=== PATIENT | female | born 1985 | race Two or more races ===

== ENCOUNTER 2020-11-12 09:03 | Outpatient (REF) | payer OTHER, SELFPAY ==
[2020-11-12 10:00] LABS: MANUAL DIFF FLAG NO
[2020-11-12 10:05] LABS: Basophils Percent Auto 0.6 % (0-2); Eosinophils Absolute Auto 0.1 X10*3/uL (0.0-0.4); Hematocrit 34.2 % (37-47); Imm Gran Abs Auto 0.02 X10*3/uL (0.00-0.03); Imm Gran Pct Auto 0.4 % (0.0-0.4); Lymphocytes Absolute Auto 1.9 X10*3/uL (1.2-4.9); Lymphocytes Percent Auto 39.1 % (20-40); Mean Corpuscular HGB Conc 32.2 g/dl (31.0-35.0); Mean Corpuscular Hemoglobin 29.4 pg (27.0-33.0); Mean Corpuscular Volume 91.4 fL (80-98); Mean Platelet Volume 10.7 fL (9.4-12.3); Monocytes Absolute Auto 0.5 X10*3/uL (0.1-1.2); Monocytes Percent Auto 9.6 % (2-11); Neutrophils Absolute Auto 2.4 X10*3/uL (2.0-8.3); Neutrophils Percent Auto 49.3 % (45-73); Platelet Count 242 X10*3/uL (160-400); Red Blood Count 3.74 X10*6/uL (4.20-5.50); Red Cell Distribution Width 14.2 % (11.0-16.0); White Blood Count 4.8 X10*3/uL (4.8-10.8)
[2020-11-12 10:34] LABS: Alanine Aminotransferase 42 U/L (0-31); Alkaline Phosphatase 90 U/L (39-117); Anion Gap 11 (12-20); Aspartate Amino Transferase 47 U/L (5-31); Bilirubin Total < 0.2 mg/dL (0.0-1.0); Blood Urea Nitrogen 6 mg/dL (9-16); Calcium 8.9 mg/dL (8.4-10.2); Carbon Dioxide 25 mmol/L (22-29); Chloride 108 mmol/L (96-108); Cholesterol 189 mg/dL; Estimated Glomerular Filt Rate > 60; Glucose Fasting 76 mg/dL (60-99); HDL Cholesterol 72 mg/dL; LDL Cholesterol Calculated 107 mg/dl; Potassium 4.5 mmol/L (3.3-5.1); Sodium 139 mmol/L (135-145); Triglycerides 50 mg/dL
[2020-11-13 11:46] LABS: CT PCR NOT DETECTED (Not Detect.); NG PCR NOT DETECTED (Not Detect.)
[2020-11-14 12:45] LABS: BV Int Neg Control Negative (Negative); BV Int Pos Control Positive (Positive)
[2020-11-16 11:27] LABS: TS Negative Control Passed; TS Panel A 3; TS Panel B 1; TS Positive Control Passed; TSpotTB Negative (SeeBelow)
[2020-11-17 17:22] LABS: HPV mRNA E6/E7 rflx Not Detected (Not Detected)
== END 2020-11-12 09:04 | disposition home or self-care (01) ==
LOC: HO.LAB 09:03
PROVIDERS: Advanced Practice Midwife; PCP Internal Medicine; Visit Provider Internal Medicine
DX: Z01.419 Encounter for gynecological examination (general) (routine) without abnormal findings (principal); N89.8 Other specified noninflammatory disorders of vagina; L72.0 Epidermal cyst; R00.2 Palpitations; E78.5 Hyperlipidemia, unspecified; D64.9 Anemia, unspecified; Z20.2 Contact with and (suspected) exposure to infections with a predominantly sexual mode of transmission; Z11.1 Encounter for screening for respiratory tuberculosis; Z79.899 Other long term (current) drug therapy
CPT/HCPCS: 36415; 80053; 80061; 84443; 85025; 86481; 87480; 87491; 87510; 87591; 87624; 87660; 88142; 99202

== ENCOUNTER 2020-12-03 07:46 | Outpatient (REF) | payer OTHER, SELFPAY ==
--- NOTE | 2020-12-03 07:41 | MHC.SHP ---
Pre-Procedural Eval Section A Date of Service: 12/03/20 The patient is an INPATIENT: No Changes since office visit: Yes Patient answered all questions; No Cold of Flu in the past 2 weeks, No New Medical Problems and No Changes in Medication The History & Physical has been completed within 30 days and I have reviewed it.: Yes Section B Chief Complaint: Epidermal inclusion cyst Allergies: Allergies Allergy/AdvReac Type Severity Reaction Status Date / Time sertraline [From Zoloft] Allergy Intermediate dizziness, Verified 11/12/20 14:28 palpitations Plan Diagnosis/Plan: Unchanged I have reviewed the history and physical and performed a pertinent physical examination on my patient. No changes have occurred unless specified.
[2020-12-03 07:56] VITALS: BMI 27.1
[2020-12-03 07:57] VITALS: BP 114/78; PULSE 83; RESP 16; TEMP 36.4; O2SAT 99
[2020-12-03 08:30] VITALS: BP 110/72; PULSE 72; RESP 16; O2SAT 100
--- NOTE | 2020-12-03 08:34 | W.PM.OPN ---
Operative Note Operative Note Date of Service: 12/03/20 Narrative: Preoperative diagnosis: epidermal inclusion cyst left posterior shoulder Postoperative diagnosis: same Procedure: excision of epidermal inclusion cyst left posterior shoulder Surgeon: Toby Limon MD Relocation Coordinator: no physician Anesthesia: local Indications for procedure: 35-year-old female with an enlarging cyst of the left posterior shoulder which is increasing in size and causing some discomfort Operative findings: 2.5 cm sebaceous cyst of the left posterior shoulder Specimen: epidermal inclusion cyst (sebaceous cyst ) Estimated blood loss: 2 mL Complications: none Procedure details: patient was brought to the minor surgery suite and placed in a prone position. The site of surgery was confirmed by the patient. Informed consent was confirmed. skin over the left posterior shoulder was prepped with Betadine and draped in a sterile fashion. An elliptical incision was then created with a 15 blade. This carried out through subcutaneous tissue and around the cyst wall. A 2.5 cm sebaceous cyst was encountered. This was excised completely and sent to pathology for further examination. After assuring adequate hemostasis the deep subcutaneous tissue was reapproximated using interrupted 3-0 Polysorb sutures. Dermis was reapproximated using interrupted 3-0 Polysorb sutures. Skin was then closed using interrupted 4-0 nylon sutures. Sterile dressings consisting of 2x2 gauze and Tegaderm were then applied. The patient tolerated the procedure well and was discharged to home in stable condition.
== END 2020-12-03 07:47 | disposition home or self-care (01) ==
LOC: HO.MS 07:46
PROVIDERS: PCP Internal Medicine; Visit Provider Surgery
PROC: (CPT 11403; principal; 2020-12-03 08:00)
DX: L72.0 Epidermal cyst (principal); F32.9 Major depressive disorder, single episode, unspecified; Z79.899 Other long term (current) drug therapy; Z88.8 Allergy status to other drugs, medicaments and biological substances
CPT/HCPCS: 11403; 12032; 88304

== ENCOUNTER → 2020-12-11 14:22 | Outpatient (BNVA) | payer OTHER, SELFPAY | PROVIDERS: PCP Internal Medicine; Referring Provider Internal Medicine; Visit Provider Surgery | DX: L72.0 Epidermal cyst (principal) | CPT/HCPCS: 99212 ==

== ENCOUNTER 2020-12-22 10:35 | Outpatient (REF) | payer OTHER, SELFPAY ==
--- NOTE | ~2020-12-22 | US_ITS ---
EXAMINATION: US COMPLETE ABDOMEN WITH LIVER ELASTOGRAPHY CLINICAL INFORMATION: Elevated liver enzymes COMPARISON: None. TECHNIQUE: Real-time imaging of the abdominal viscera. Noninvasive ultrasound liver fibrosis assessment is performed using Narcisa ElastPQ point quantification shear wave elastography (pSWE) with a C5-2 MHz transducer. Multiple elastography samples are obtained. FINDINGS: PANCREAS: Normal. ABDOMINAL AORTA: The proximal, middle, and distal aortic segments are normal in caliber. INFERIOR VENA CAVA: Visualized portions are normal. LIVER: Normal. The liver demonstrates normal size, contour and echogenicity. No focal lesion or intrahepatic biliary duct dilatation. The right lobe measures 15 cm in length. The left lobe measures 9.4 cm in length. Portal flow is normal/hepatopedal Shear wave liver elastography median stiffness is 1.4 m/s (reference: normal median stiffness is 1.3 m/s or less). IQR/median stiffness to assess sampling precision is 0.14 (reference: good quality data set is IQR/median stiffness of 0.15 or less). GALLBLADDER: Normal. The gallbladder is physiologically distended without evidence of stones, sludge, polyps, wall thickening or pericholecystic fluid. COMMON BILE DUCT: Normal in caliber measuring 0.3 cm in diameter. RIGHT KIDNEY: Normal. No hydronephrosis. No renal calculi or focal parenchymal lesions. The kidney measures 10.6 cm in maximum dimension. LEFT KIDNEY: Normal. No hydronephrosis. No renal calculi or focal parenchymal lesions. The kidney measures 10.3 cm in maximum dimension. SPLEEN: Normal. The spleen measures 9.2 cm in maximum dimension. FREE FLUID: None. US/US abdomen comp w elastography IMPRESSION: 1. Impression: Unremarkable exam. 2. Liver elastography: Adequate liver sampling. In the absence of other known clinical signs, rules out compensated advanced chronic liver disease. REFERENCE: Society of Radiologists in Ultrasound Liver Stiffness Thresholds (2020): LIVER STIFFNESS THRESHOLDS: *Liver Stiffness equal or less than 1.3 m/s: High probability of being normal. *Liver Stiffness less than 1.7 m/s: *Liver Stiffness 1.7-2.1 m/s: Suggestive of compensated advanced chronic liver disease but need further test for confirmation. *Liver Stiffness over 2.1 m/s: Rules in compensated advanced chronic liver disease. *Liver Stiffness over 2.4 m/s: Suggestive of clinically significant portal hypertension. QUALITY OF DATA SET: *IQR/Median value equal or less than 0.15 implies a quality data set. *IQR/Median value over 0.15 implies a poor quality data set. SIGNIFICANT CHANGE FROM PRIOR EXAM: Significant change if liver stiffness measurement is 10% or greater from prior exam. OTHER CONSIDERATIONS: The stage of liver fibrosis may be overestimated in the setting of acute hepatitis, liver inflammation, elevated liver function tests, hepatic vascular congestion, obstructive cholestasis, non-fasting state, and infiltrative diseases such as amyloidosis and lymphoma. In some patients with NAFLD, the liver stiffness thresholds for compensated advanced chronic liver disease may be lower. In causes other than viral hepatitis and NAFLD, liver stiffness thresholds are not well established.
== END 2020-12-22 10:36 | disposition home or self-care (01) ==
LOC: HO.US 10:35
PROVIDERS: Visit Provider Internal Medicine
DX: R74.01 Elevation of levels of liver transaminase levels (principal)
CPT/HCPCS: 76705; 76981

== ENCOUNTER → 2020-12-25 12:58 | Outpatient (REF) | payer OTHER, SELFPAY ==
--- NOTE | 2020-12-25 13:02 | ECG_ITS ---
Hook-up date: 2020-12-25 13:22:00 Duration: 47:59:00 Test Indications: palpitations Medications: 124353 QRS complexes 8 Ventricular ectopics which represent <1 % of total QRS comp. 1 Supraventricular ectopics which represent <1 % of total QRS comp. * Paced QRS complexs which represent % of total QRS comp. VENTRICULAR ECTOPY 8 Isolated 0 Bigeminal Cycles 0 Couplets 0 Runs 0 Beats in Runs * Beats LONGEST at * BPM at :: -- * Beats FASTEST at * BPM at :: -- SUPRAVENTRICULAR ECTOPY 1 Isolated 0 Couplets 0 Runs 0 Beats in Runs * Beats LONGEST at * BPM at :: -- * Beats FASTEST at * BPM at :: -- HEART RATES 52 MIN at 13:47:31 2020-12-26 84 AVG 173 MAX at 20:25:43 2020-12-26 LONGEST RR 1.2640 secs at 13:45:40 2020-12-26 S-T LEVELS Channel 1 - 128 mm at 13:22:00 2020-12-25 - 128 mm at 13:22:00 2020-12-25 Channel 2 - 128 mm at 13:22:00 2020-12-25 - 128 mm at 13:22:00 2020-12-25 Channel 3 - 128 mm at 03:24:11 -- - 128 mm at 03:24:11 Underlying rhythm is sinus; Average ventricular rate 84/min; range 52-173/min; About 17% of the time, rate >100/min (sinus tachycardia); Rare Premature ventricular complexes ; Patient did not report any symptoms in the diary Referred By: Cindy Donald Overread By: LUC DEL CID
== END ==
LOC: HO.CARD 12:58
PROVIDERS: PCP Internal Medicine; Visit Provider Internal Medicine
DX: R00.2 Palpitations (principal)
CPT/HCPCS: 93225; 93226

== ENCOUNTER 2021-07-12 16:00 | Outpatient (RCR) | payer OTHER, SELFPAY ==
--- NOTE | 2021-06-21 17:09 | MHC.PT.EP ---
[facility] [place] Office [place] Office [place] Office [address] Miladys Aguirre [address] [phone] F: [phone] F: [phone] F: [phone] F: [phone] Physical Therapy Plan of Care Date of Evaluation: Date of Surgery: N/A Diagnosis: sciatica left side Assessment: pt's signs and symptoms consistent w/ piriformis syndrome. pt presents to physical therapy with pain, decreased range of motion, decreased strength, impaired functional mobility, impaired postural awareness, and gait deviations. pt is a good candidate for skilled PT due to age, potential remediation of impairments, typical disease/condition progression and prognosis, comorbidities, and motivation. pt would benefit from tailored strengthening and stretching exercise program, functional training, gait training, postural re-training, neuromuscular re-education, modalities as needed for pain, equipment safety demonstration. Frequency and Duration: The patient will be seen 2x/wk for 4 wks Short Term Goals: pt will be I w/ HEP to promote self-management of condition. pt will demo proper sitting posture w/ lumbar roll to promote neutral spine w/ work related tasks. Mcfp Goals: pt will report a statistically significant improvement in self-reported outcome measure, Shaq, to promote return to PLOF. 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 Treatment Plan: Modalities to reduce pain, spasms and effusion. Manual therapy to restore motion and function. Therapeutic exercise to improve strength and flexibility. Neuromuscular re-education for posture and balance. Therapeutic activities to return to functional activities of daily living. Electronically signed by: Katiana Long PT, DPT Please sign and return to therapist. Thank you for your referral.
--- NOTE | 2021-08-05 14:46 | MHC.PT.DC ---
[facility] [place] Office [place] Office [place] Office [address] Miladys Aguirre [address] [phone] F: [phone] F: [phone] F: [phone] F: [phone] Physical Therapy Discharge Report Diagnosis: sciatica left side Date of Surgery: N/A Date of Evaluation: 06/21/21 Date of Discharge: 08/05/21 Treatments to Date: 3 Cancellations to Date: 4 No Shows to Date: 0 Discharge Status: Patient Elected to Stop Discharge Summary: The patient called cancelled her last visit and did not want to reschedule at this time. Our office has not heard from the patient in over three weeks. Per last treatment note: Pt continues to be progressing well without radiating symptoms into LE's. She requires occasional cues with prone hip ext to avoid compensation of low back with good carry over. Pt continues to have decreased motor control with pelvic tilt and has difficulty with carry over into standing but did improve with repetitions. Continue to progress per pt tolerance. She is being discharged from this physical therapy plan of care per the patient's request. Electronically signed by: Katiana Long PT, DPT Please sign and return to therapist. Thank you for your referral.
== END 2021-08-05 14:46 | disposition home or self-care (01) ==
LOC: HO.PT 16:00
PROVIDERS: PCP Internal Medicine; Visit Provider Internal Medicine
DX: M54.32 Sciatica, left side (principal)
CPT/HCPCS: 97110; 97162

== ENCOUNTER 2022-01-20 10:07 | Outpatient (REF) | payer OTHER, SELFPAY ==
[2022-01-21 04:15] LABS: CT PCR NOT DETECTED (Not Detect.); NG PCR NOT DETECTED (Not Detect.)
[2022-01-21 13:07] LABS: BV Int Neg Control Negative (Negative); BV Int Pos Control Positive (Positive)
== END 2022-01-20 10:08 | disposition home or self-care (01) ==
LOC: HO.LAB 10:07
PROVIDERS: Visit Provider Advanced Practice Midwife
DX: Z11.3 Encounter for screening for infections with a predominantly sexual mode of transmission (principal); Z20.2 Contact with and (suspected) exposure to infections with a predominantly sexual mode of transmission
CPT/HCPCS: 87480; 87491; 87510; 87591; 87660

== ENCOUNTER 2023-03-28 06:10 | Outpatient (REF) | payer OTHER, SELFPAY ==
[2023-03-28 08:03] LABS: Alanine Aminotransferase 16 U/L (0-31); Albumin Level 4.1 g/dL (3.5-5.0); Alkaline Phosphatase 73 U/L (39-117); Anion Gap 13 (12-20); Aspartate Amino Transferase 25 U/L (5-31); Bilirubin Total 0.2 mg/dL (0.0-1.0); Blood Urea Nitrogen 7 mg/dL (9-16); Calcium 9.2 mg/dL (8.4-10.2); Carbon Dioxide 20 mmol/L (22-29); Chloride 109 mmol/L (96-108); Cholesterol 210 mg/dL (<200); Estimated Glomerular Filt Rate > 60; Glucose Fasting 82 mg/dL (60-99); HDL Cholesterol 71 mg/dL (>40); LDL Cholesterol Calculated 130 mg/dL (<100); Potassium 3.7 mmol/L (3.3-5.1); Sodium 138 mmol/L (135-145); Total Protein 7.7 g/dL (6.5-8.0); Triglycerides 46 mg/dL (<150)
== END 2023-03-28 06:11 | disposition home or self-care (01) ==
LOC: HO.LAB 06:10
PROVIDERS: PCP Internal Medicine; Visit Provider Internal Medicine
DX: Z00.00 Encounter for general adult medical examination without abnormal findings (principal); E78.5 Hyperlipidemia, unspecified
CPT/HCPCS: 36415; 80053; 80061

== ENCOUNTER 2023-06-19 13:30 | Outpatient (REF) | payer OTHER, SELFPAY ==
[2023-06-20 02:19] LABS: CT PCR NOT DETECTED (Not Detect.); NG PCR NOT DETECTED (Not Detect.)
[2023-06-20 12:31] LABS: BV Int Neg Control Negative (Negative); BV Int Pos Control Positive (Positive)
== END 2023-06-19 13:31 | disposition home or self-care (01) ==
LOC: HO.LNP 13:30
PROVIDERS: PCP Internal Medicine; Visit Provider Advanced Practice Midwife
DX: Z01.419 Encounter for gynecological examination (general) (routine) without abnormal findings (principal); Z20.2 Contact with and (suspected) exposure to infections with a predominantly sexual mode of transmission; F33.0 Major depressive disorder, recurrent, mild
CPT/HCPCS: 0353U; 87480; 87510; 87660; 99395

== ENCOUNTER 2023-06-19 13:30 | Outpatient (AMB) | payer OTHER, SELFPAY ==
[2023-06-19 13:32] VITALS: BP 108/70; BMI 26.0
--- NOTE | 2023-06-19 13:32 | A.OFFVIS_ITS ---
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 Information Interpreted: non-clinical & clinical Occupational Therapy Teacher: Occupational Therapy Teacher Present (Briannayn) Allergies sertraline [From Zoloft] Allergy (Intermediate, Verified 06/19/23 13:34) dizziness, palpitations Medication List - Last Reconciled 06/19/23 by Annmarie Borja CNM No Known Home Meds Is last menstrual period known: Yes Last menstrual period: 05/27/23 Post menopausal: No HPI Annual/DO NOT RS HPI Details 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 She has no concerns about STIs but she would like full testing she is actually getting in about 2 weeks and she is looking forward to that it will be her 2nd marriage the father of her children . She is very happy she does a lot of self-care with praying and journaling and being active in her pentecostalism and community and she goes to the gym at least 3 times a week. She eats well. [facility] Medical History Left sided sciatica Mild major depression, single episode Transaminitis Lipoma Palpitations Depression with anxiety Surgical History Hx of lipoma Hx of tubal ligation Family History Father Hypertension Gout Mother Hypertension Anxiety Depression Social History Housing: Apartment Alcohol intake: never Patient Tobacco Use Status: Never used Tobacco e-Cigarette/Vaping Use: Never Used Second Hand Smoke Exposure: No service: No Current occupational status: employed Gender identity: Female Cognitive needs: No Hearing needs: No Vision needs: No Female Reproductive History Menstrual Age of Menarche: 12 Duration of menses: 3-5 days Date of last menstrual period: 05/27/23 control method: other (tubal ligation) Total pregnancies: 2 Full term: 2 Number of Living Children: 2 Date of last pap smear: 11/13/20 (negative) Physical Exam Vital Signs: Last Vital Signs BP 108/70 06/19/23 13:32 BMI result Body Mass Index 26.0 Const General: healthy appearing, comfortable, no acute distress, well developed and alert Nutritional Appearance: average body habitus Orientation/consciousness: patient oriented x3 Limitations: no limitations HEENT Head: Yes normocephalic Neck Neck: Yes normal visual inspection Chest Chest palpation & inspection: normal inspection of the chest Breast/axilla inspection: normal inspection of the breasts and normal inspection of the axillae Breast/axilla palpation: normal palpation of the breasts and normal palpation of the axillae Resp Effort & Inspection: normal respiratory effort GI Inspection: Yes normal to inspection, No Abdominal wall edema and No distended Palpation (GI): Soft to palpation and nontender Other: Vagina pink and moist cervix multiparous pink moist firm closed mobile uterus midposition to anteverted with slight levo rotation as well adnexa nontender good tone with Kegel General: Yes bladder normal to palpation External Female Exam: normal external appearance and normal appearance of the urethra Speculum Exam - Vagina: normal appearance of the vagina, normal palpation and normal vaginal discharge Speculum Exam - Cervix: normal appearance of the cervix, normal palpation and nontender Bimanual exam- vagina & uterus: normal bimanual exam, normal palpation, uterine size normal, bladder normal to palpation, consistency normal, normal palpation, uterine mobility normal, uterine shape normal, No Cervical tenderness present, non-tender and no cervical motion tenderness Bimanual Exam- Adnexa, other: normal adnexae, no masses, normal and No adnexal tenderness Neuro General: patient oriented x3 Results Reviewed Results Reviewed: Name: Starla Phillips Age/Sex: 35/F Attending: Cindy Miller MD : 1985 Submitted by: Annmarie Borja CNM Copies to: Cindy Miller MD MR #: [id number] Status: DEP REF Collected: 11/12/20 Location: .LAB Received: 11/13/20 Interpretation Satisfactory for evaluation. Negative for intraepithelial lesion or malignancy. Moderate inflammation. Coccobacilli consistent with shift in vaginal eduardo. HPV mRNA E6/E7: NOT DETECTED This assay detects E6/E7 viral messenger RNA (mRNA) from 14 high-risk HPV types (16, 18, 31, 33, 35, 39, 45, 51, 52, 56, 58, 59, 66, 68) HPV testing performed by [facility], [place], [place]. See reference laboratory portion of the EMR for entire report. Clinical Information LMP: 11/02/20 Previous PAP test: 2014?, Unknown Findings Material Received ThinPrep Cervical Copies To Annmarie Borja CNM [address] [place] [address] [address] [place] [address] Cindy Miller MD [address] [place] [address] [address] [place] [address] Electronically Signed By: Bakari Chiu MD 11/24/20 0932 The Pap Test is a screening procedure with the inherent possibility of both false negative and false positive results. Results should be interpreted in the context of historic and current clinical findings. Reliability of the Pap Test is enhanced by performing the test on a regular repetitive basis. Patient: Sung Page 1 of 1 Assessment & Plan Assessment & Plan (1) Potential exposure to STD: Code(s): Z20.2 - Contact with and (suspected) exposure to infections with a predominantly sexual mode of transmission (2) Cervical cancer screening: Comment: prev paps in [place], last one ?2014. pap 11/12/20=neg, neg HPV. Code(s): Z12.4 - Encounter for screening for malignant neoplasm of cervix (3) Well woman exam with routine gynecological exam: Code(s): Z01.419 - Encounter for gynecological examination (general) (routine) without abnormal findings (4) Mild recurrent major depression: Comment: Patient shared that she feels like she is in a very good place at this time of her life 06/19/2023. Code(s): F33.0 - Major depressive disorder, recurrent, mild Plan -----Discussed in this visit the following: healthy balanced diet, regular and consistent exercise, getting recommended health screens, doing the best she can for her particular health concerns, kegel exercises, pap smear screening and followup recommendations, mammography screening and SBE, normal changes in cycle s in her life stage--- . Discussed her self-care activities and she feels very good about things overall and she feels she has in a very good place right now. We will see her in 1 year I am ordering blood work for STIs that she can get when she wishes she may want to get them today. We will see her in 1 year. Discussed her Pap smear may be due in 2024 or 2025. And she would be due for her 1st annual mammogram next year when she turns 39 and it can be ordered by either myself for her primary care provider. Orders: Orders Hepatitis C Antibody Today Z20.2 - Contact with and (suspected) exposure to infections with a predominantly sexual mode of transmission HIV Ab/Ag Today Z20.2 - Contact with and (suspected) exposure to infections with a predominantly sexual mode of transmission Syphilis Screen Today Z20.2 - Contact with and (suspected) exposure to infections with a predominantly sexual mode of transmission Hepatitis B Surface Antigen Today Z20.2 - Contact with and (suspected) exposure to infections with a predominantly sexual mode of transmission Coding Level of Care Code Est Pt Prev Care 18-39y(78324) Diagnoses Potential exposure to STD Z20.2 Cervical cancer screening Z12.4 Well woman exam with routine gynecological exam Z01.419 Mild recurrent major depression F33.0
== END 2023-06-19 14:27 | disposition home or self-care (01) ==
LOC: HO.HWS 13:30
PROVIDERS: PCP Internal Medicine; Visit Provider Advanced Practice Midwife
DX: Z01.419 Encounter for gynecological examination (general) (routine) without abnormal findings (principal); Z20.2 Contact with and (suspected) exposure to infections with a predominantly sexual mode of transmission; Z12.4 Encounter for screening for malignant neoplasm of cervix; F33.0 Major depressive disorder, recurrent, mild
CPT/HCPCS: 99395

== ENCOUNTER 2024-06-17 17:19 | Outpatient (AMB) | payer OTHER, SELFPAY ==
--- NOTE | 2024-06-17 17:33 | A.OFFPC_ITS ---
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 Die Casting Required: Yes Supervisor Die Casting Language: Straightening Press Operator Name: Cindy Donald MD Information Interpreted: non-clinical & clinical Accompanied by: Self / Same As Patient Allergies sertraline [From Zoloft] Allergy (Intermediate, Verified 06/17/24 17:51) dizziness, palpitations Medication List - Last Reconciled 06/17/24 by Cindy Donald MD No Known Home Meds Tobacco use date assessed: 06/17/24 Dental Screening Dental Screen Date: 06/17/24 Did you have a dental visit in the last 12 months?: Yes Did you have a dental problem in the last 6 months where you did not have access to dental care?: No Was dental information given to patient?: Patient has dentist HPI HPI Comments History of Present Illness Details The patient is a 39-year-old female presenting with a request for a wellness visit. During the visit, she expressed that she has not engaged in smoking, drinking alcohol, or experienced symptoms of depression or anxiety. She mentioned her prior cholesterol levels without specifics and discussed aspects of her employment situation. Overall, she reported feeling well with no acute concerns mentioned at this time. She was instructed to verify if any recommended health procedures or vaccinations had been completed less than 10 years ago. [facility] Medical History (Updated 06/17/24 @ 19:13 by Cindy Doanld MD) Mild recurrent major depression Left sided sciatica Mild major depression, single episode Transaminitis Lipoma Palpitations Depression with anxiety Surgical History Hx of lipoma Hx of tubal ligation Family History Father Hypertension Gout Mother Hypertension Anxiety Depression Social History Housing: Apartment Alcohol intake: never Patient Tobacco Use Status: Never used Tobacco e-Cigarette/Vaping Use: Never Used Second Hand Smoke Exposure: No service: No Current occupational status: employed Gender identity: Female Cognitive needs: No Hearing needs: No Vision needs: No Female Reproductive History Menstrual Age of Menarche: 12 Questionnaire PHQ-9 Over the last 2 weeks, how often have you been bothered by any of the following problems? 1. Little interest or pleasure in doing things: not at all 2. Feeling down, depressed, or hopeless: not at all 3. Trouble falling or staying asleep, or sleeping too much: not at all 4. Feeling tired or having little energy: not at all 5. Poor appetite or overeating: not at all 6. Feeling bad about yourself - or that you are a failure or have let yourself or your family down: not at all 7. Trouble concentrating on things, such as reading the newspaper or watching television: not at all 8. Moving or speaking so slowly that other people could have noticed. Or the opposite - being so fidgety or restless that you have been moving around a lot more than usual: not at all 9. Thoughts that you would be better off or of hurting yourself in some way: not at all Total score: 0 Depression Screening Interpretation: Negative Depression Screening Done: Yes 50548 - PHQ-9 Billing: Yes Source: Developed by Drs. Haris Barraza, Chely Sapp, Jose Espino and colleagues, with an educational stanley from [employer]. Thrive Questionnaire Date Thrive assessed: 06/17/24 I am a: Patient What is your living situation today?: I have a steady place to live Within the past 12 months, did the food you bought not last and you didn't have the money to get more?: Never true Within the past 12 months, did you worry whether your food would run out before you got money to buy more?: Never true Do you have trouble paying for medicines?: No Do you have trouble getting transportation to medical appointments?: No Do you have trouble paying your heating and electricity bill?: No Do you have trouble taking care of your child, family member or friend?: No Do you have trouble with day-to-day activities such as bathing, preparing meals, shopping, managing finances, etc.?: No Are you currently unemployed and looking for a job?: No Are you interested in more education?: No Please select the resources that you would like help with: None Currently or been in a relationship where the following occur: No concerns reported THRIVE Score: 0 AUDIT C Alcohol Use Questionnaire (AUDIT-C) 1. How often do you have a drink containing alcohol?: Never Total Score: 0 Score Reviewed/Action Taken: No OTTO-7 AMB Questionnaire OTTO-7 Date OTTO - 7 assessed: 06/17/24 Feeling nervous, anxious, or on edge: 0 = Not at all Not being able to stop or control worryin = Not at all Worrying too much about different things: 0 = Not at all Trouble relaxin = Several days Being so restless that it is hard to sit still: 0 = Not at all Becoming easily annoyed or irritable: 0 = Not at all Feeling afraid as if something awful might happen: 0 = Not at all Total OTTO-7 score (0-4 normal; 5-9 mild; 10-14 moderate; 15-21 severe): 1 Source: Developed by Drs. Haris Barraza, Chely Sapp, Jose Espino and colleagues, with an educational stanley from [employer]. OTTO-7 Assessment Billing OTTO-7 Assessment Tool: OTTO-7 Assessment 52995 Review of Systems Const All systems reviewed & are unremarkable except as noted in HPI and below Card Denies chest pain at rest, Denies chest pain with activity, Denies edema, Denies irregular heart rhythm, Denies claudication, Denies dyspnea, Denies dyspnea on exertion, Denies orthopnea, Denies paroxysmal nocturnal dyspnea and Denies slow heart rate Resp Denies cough, Denies dyspnea and Denies dyspnea on exertion GI Denies abdominal pain, Denies change in bowel habits, Denies excessive flatus, Denies nausea and Denies vomiting Denies urinary incontinence, Denies urinary hesitancy and Denies urinary urgency Musc Denies abnormal gait, Denies atrophy, Denies deformity and Denies limited range of motion Skin/Breast Denies bleeding lesions, Denies changing lesions and Denies rash Neuro Denies abnormal gait, Denies behavioral changes and Denies lack of coordination Psych Denies behavioral changes Physical exam (Primary Care) Vital Signs: Last Vital Signs BP 116/80 06/17/24 17:34 BMI result Body Mass Index 26.0 Tobacco/Smoking Status: Tobacco use Status Tobacco use date assessed 06/17/24 06/17/24 17:50 Patient Tobacco Use Status Never used Tobacco 06/17/24 17:45 e-Cigarette/Vaping Use Never Used 06/17/24 17:45 PHQ-9: PHQ-9 Score PHQ-9: Total score 0 06/17/24 18:01 Depression Screening Interpretation: Negative Thrive Assessment: Date of Thrive Assessment Date Thrive assessed 06/17/24 06/17/24 17:50 Currently or been in a relationship where the following occur: No concerns reported HENWA Head: Yes normal to inspection, Yes normocephalic and Yes atraumatic Ears: external ears normal Eyes General: appearance normal, both eyes and all related structures Eyelids: Yes eyelids normal Conjunctivae: conjunctivae normal Neck Neck: Yes normal visual inspection and Yes supple Resp Effort & Inspection: normal respiratory effort Auscultation: clear to auscultation bilaterally Cardio Jugular venous distension: no JVD Rate: regular rate Rhythm: regular rhythm Heart sounds: S1 normal heart sound present and S2 normal heart sound present GI Inspection: Yes normal to inspection Palpation (GI): Soft to palpation and nontender Auscultation: normal bowel sounds Skin General skin exam: no rashes or lesions noted Neuro General: no focal motor deficits Extrem General: Yes full ROM Psych Appearance: grossly normal Office Procedures Flu Questionnaire Does the patient have a severe egg allergy?: No Immunizations Fluarix Triv [id number] (PF) 45 mcg (15 mcg x 3)/0.5 mL IM syringe Performing Provider: Cindy Donald MD Performing Location[facility] [place] [facility] Documented (not given) by: ADAM Thurston on 06/17/24 18:01 Reason Not Given: Patient Refused Coding Level of Care Code Est Pt Prev Care 40-64y(49644) Diagnoses Physical exam Z00.00 Additional Codes OTTO-7 Assessment Billing - OTTO-7 Assessment Tool: OTTO-7 Assessment 66303 ([id number]) PHQ-9 - 79690 - PHQ-9 Billing: Yes ([id number]) Time Spent (min) 30 Assessment & Plan Assessment & Plan (1) Physical exam: Code(s): Z00.00 - Encounter for general adult medical examination without abnormal findings Category: Medical Plan - Order and complete fasting laboratory tests within the next three months. - Schedule and complete a mammogram. Patient was informed and verbally consented to the use of an ambient scribe for clinic note documentation during this visit. I discussed the importance of maintaining regular wellness checks and completing outstanding health maintenance activities. We reviewed the need to verify previous vaccinations, especially those done during . I advised the patient to schedule fasting laboratory tests with a three-month window and informed her that the mammogram would be scheduled soon. We agreed that she would confirm whether past procedures or vaccinations had been done recently. I also explained where the mammogram would occur and advised her to contact the hospital registration for the lab test appointments. Orders: Orders MM tomosynthesis screening BI Today Z12.31 - Encounter for screening mammogram for malignant neoplasm of breast Lipid Panel Today E78.5 - Hyperlipidemia, unspecified Comprehensive [place]. Panel Fast Today Z00.00 - Encounter for general adult medical examination without abnormal findings Influenza [id number] Immunization Today Z23 - Encounter for immunization Patient Instructions: - Verify recent vaccination status, particularly those possibly administered during . - Schedule a mammogram appointment. - Complete fasting lab tests within the next three months. - Contact the hospital registration for test appointments if needed.
[2024-06-17 17:34] VITALS: BP 116/80; BMI 26.0
== END 2024-06-17 18:02 | disposition home or self-care (01) ==
PROVIDERS: PCP Internal Medicine; Visit Provider Internal Medicine
DX: Z00.00 Encounter for general adult medical examination without abnormal findings (principal); Z23 Encounter for immunization

== ENCOUNTER → 2024-06-17 17:19 | Outpatient (BNVA) | payer OTHER, SELFPAY | PROVIDERS: PCP Internal Medicine; Visit Provider Internal Medicine | DX: Z00.00 Encounter for general adult medical examination without abnormal findings (principal); Z28.21 Immunization not carried out because of patient refusal | CPT/HCPCS: 90471; 96127 ==

== ENCOUNTER 2024-06-20 08:19 | Outpatient (REF) | payer OTHER, SELFPAY ==
[2024-06-20 09:42] LABS: Alanine Aminotransferase 15 U/L (0-31); Albumin Level 4.1 g/dL (3.5-5.0); Alkaline Phosphatase 68 U/L (39-117); Anion Gap 10 (12-20); Aspartate Amino Transferase 25 U/L (5-31); Bilirubin Total 0.2 mg/dL (0.0-1.0); Blood Urea Nitrogen 10 mg/dL (9-16); Calcium 9.4 mg/dL (8.4-10.2); Carbon Dioxide 25 mmol/L (22-29); Chloride 108 mmol/L (96-108); Cholesterol 228 mg/dL (<200); Estimated Glomerular Filt Rate > 60; Glucose Fasting 73 mg/dL (60-99); HDL Cholesterol 66 mg/dL (>40); LDL Cholesterol Calculated 152 mg/dL (<100); Potassium 4.3 mmol/L (3.3-5.1); Sodium 139 mmol/L (135-145); Total Protein 7.8 g/dL (6.5-8.0); Triglycerides 52 mg/dL (<150)
[2024-06-20 20:23] LABS: Bacterial Vaginosis PCR POSITIVE (Negative); Candida Group PCR NOT DETECTED (Not Detect); Candida glab krusei PCR NOT DETECTED (Not Detect); Trichomonas vaginalis PCR NOT DETECTED (Not Detect)
[2024-06-21 14:40] LABS: CT PCR NOT DETECTED (Not Detect.); NG PCR NOT DETECTED (Not Detect.)
== END 2024-06-20 08:20 | disposition home or self-care (01) ==
LOC: HO.LAB 08:19
PROVIDERS: Advanced Practice Midwife; PCP Internal Medicine; Visit Provider Internal Medicine
DX: Z00.00 Encounter for general adult medical examination without abnormal findings (principal); E78.5 Hyperlipidemia, unspecified; Z01.419 Encounter for gynecological examination (general) (routine) without abnormal findings; N89.8 Other specified noninflammatory disorders of vagina; Z20.2 Contact with and (suspected) exposure to infections with a predominantly sexual mode of transmission; Z12.39 Encounter for other screening for malignant neoplasm of breast
CPT/HCPCS: 36415; 80053; 80061; 81515; 87491; 87591; 99396; 99459

== ENCOUNTER 2024-06-20 09:12 | Outpatient (AMB) | payer OTHER, SELFPAY ==
--- NOTE | 2024-06-20 09:15 | MHC.OFFVIS ---
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 She got last June and she has had a very great year she loves her job at the [employer] in [place]. She has her tubal ligation and she is happy with that her has a 22-year-old from his 1st relationship in her children are 14 about to turn 15 and 11 years old. She does exercise and tries to eat well and has cut out sugar and carbs and feels much better and she takes extra magnesium and also collagen and biotin for hair nails. She saw her primary care provider recently and she has ordered a mammogram for her and I discussed yearly screening from now on for that. Her last Pap smear was negative in 2020 with negative HPV she has never ever had an abnormal 1 I reviewed the screening for cervical cancer and she will be due for Pap smear with co testing next year. She does not have any concerns at all her periods started today just when she arrived here and her periods are right on point and come about every 3 and half weeks. [facility] Medical History Mild recurrent major depression Left sided sciatica Mild major depression, single episode Transaminitis Lipoma Palpitations Depression with anxiety Surgical History Hx of lipoma Hx of tubal ligation Family History Father Hypertension Gout Mother Hypertension Anxiety Depression Social History Housing: Apartment Alcohol intake: never Patient Tobacco Use Status: Never used Tobacco e-Cigarette/Vaping Use: Never Used Second Hand Smoke Exposure: No service: No Current occupational status: employed Gender identity: Female Cognitive needs: No Hearing needs: No Vision needs: No Female Reproductive History Menstrual Age of Menarche: 12 Duration of menses: 3-5 days Date of last menstrual period: 05/25/24 control method: permanent sterilization Total pregnancies: 2 Full term: 2 Date of last pap smear: 11/13/20 (negative) History of abnormal pap smear: No Physical Exam Vital Signs: Last Vital Signs BP 112/66 06/20/24 09:16 BMI result Body Mass Index 26.0 Const General: healthy appearing, comfortable, no acute distress, well developed and alert Nutritional Appearance: average body habitus Orientation/consciousness: patient oriented x3 Limitations: no limitations HEENT Head: Yes normocephalic Neck Neck: Yes normal visual inspection Chest Chest palpation & inspection: normal inspection of the chest Breast/axilla inspection: normal inspection of the breasts and normal inspection of the axillae Breast/axilla palpation: normal palpation of the breasts and normal palpation of the axillae Resp Effort & Inspection: normal respiratory effort GI Inspection: Yes normal to inspection, No Abdominal wall edema and No distended Palpation (GI): Soft to palpation and nontender Other: Normal external exam some white sebaceous inclusion cysts labia minora left side the patient has had a for while. Vagina pink and moist with normal appearing menstrual fluid cervix multiparous pink smooth healthy appearing long close thick mobile nontender uterus small anteverted mobile nontender adnexa nontender nonenlarged very good tone with Kegel. General: Yes bladder normal to palpation External Female Exam: normal external appearance and normal appearance of the urethra Speculum Exam - Vagina: normal appearance of the vagina, normal palpation and normal vaginal discharge Speculum Exam - Cervix: normal appearance of the cervix, normal palpation and nontender Bimanual exam- vagina & uterus: normal bimanual exam, normal palpation, uterine size normal, bladder normal to palpation, consistency normal, normal palpation, uterine mobility normal, uterine shape normal, No Cervical tenderness present, non-tender and no cervical motion tenderness Bimanual Exam- Adnexa, other: normal adnexae, no masses, normal and No adnexal tenderness Neuro General: patient oriented x3 Results Reviewed Results Reviewed: Name: Starla Phillips Age/Sex: 35/F Attending: Cindy Miller MD : 1985 Submitted by: Annmarie Borja CNM Copies to: Cindy Miller MD MR #: [id number] Status: DEP REF Collected: 11/12/20 Location: .LAB Received: 11/13/20 Interpretation Satisfactory for evaluation. Negative for intraepithelial lesion or malignancy. Moderate inflammation. Coccobacilli consistent with shift in vaginal eduardo. HPV mRNA E6/E7: NOT DETECTED This assay detects E6/E7 viral messenger RNA (mRNA) from 14 high-risk HPV types (16, 18, 31, 33, 35, 39, 45, 51, 52, 56, 58, 59, 66, 68) HPV testing performed by [employer], [place], [place]. See reference laboratory portion of the EMR for entire report. Clinical Information LMP: 11/02/20 Previous PAP test: 2014? , Unknown Findings Material Received ThinPrep Cervical Copies To Annmarie Borja CNM [address] [place] [address] [address] [place] [address] Cindy Miller MD [address] [place] [address] [address] [place] [address] Electronically Signed By: Bakari Chiu MD 11/24/20 0932 The Pap Test is a screening procedure with the inherent possibility of both false negative and false positive results. Results should be interpreted in the context of historic and current clinical findings. Reliability of the Pap Test is enhanced by performing the test on a regular repetitive basis. Patient: Sung Page 1 of 1 Assessment & Plan Assessment & Plan (1) Well woman exam with routine gynecological exam: Code(s): Z01.419 - Encounter for gynecological examination (general) (routine) without abnormal findings Category: Medical (2) Cervical cancer screening: Comment: [place] paps in [place], last one ?2014. pap 11/12/20=neg, neg HPV. Code(s): Z12.4 - Encounter for screening for malignant neoplasm of cervix Category: Medical (3) Potential exposure to STD: Code(s): Z20.2 - Contact with and (suspected) exposure to infections with a predominantly sexual mode of transmission Category: Medical (4) Breast cancer screening: Code(s): Z12.39 - Encounter for other screening for malignant neoplasm of breast Category: Medical Plan -----Discussed in this visit the following: healthy balanced diet, regular and consistent exercise, getting recommended health screens, doing the best she can for her particular health concerns, kegel exercises, pap smear screening and followup recommendations, mammography screening and SBE, normal changes in cycles in her life stage--- Reviewed all the wonderful thing she is doing to help take care of herself and be as healthy as she can reviewed the good place she feels she is in her life. She will be due for her Pap smear next year with Co testing as she has never had an abnormal and she is in the every 5 year screening schedule. Now that her primary is ordered her mammogram she will be scheduling that and I recommend getting it after her period os it is less uncomfortable, and then be every year. Reviewed her healthy eating and exercise regime. Screening done for STIs she has no worries. She felt no need for blood work.(she just got her fasting labs done for her primary this morning). . RTC 1 year for annual and Pap Coding Level of Care Code Est Pt Prev Care 40-64y(76511) Diagnoses Well woman exam with routine gynecological exam Z01.419 Cervical cancer screening Z12.4 Potential exposure to STD Z20.2 Breast cancer screening Z12.39
[2024-06-20 09:16] VITALS: BP 112/66; BMI 26.0
== END 2024-06-20 10:55 | disposition home or self-care (01) ==
PROVIDERS: PCP Internal Medicine; Visit Provider Advanced Practice Midwife
DX: Z01.419 Encounter for gynecological examination (general) (routine) without abnormal findings (principal); Z20.2 Contact with and (suspected) exposure to infections with a predominantly sexual mode of transmission
CPT/HCPCS: 99396; 99459

== ENCOUNTER 2024-06-24 14:56 | Outpatient (REF) | payer OTHER, SELFPAY ==
--- OUTSIDE RECORDS SUMMARY | 2024-06-24 19:13 | XMS_ITS | Clinical Summary ---
Author Organization [employer] [facility] it Address [address] [place] [address] Care Team Providers Care Security And Compliance Analyst Name Role Phone Unavailable Primary Care Provider Unavailabl e Social History Tobacco Use Types Packs/Day Years Used Date Smoking Tobacco: Never Assessed Sex and Gender Information Value Date Recorded Sex Assigned at Not on file Gender Identity Not on file Sexual Orientation Not on file Plan of Treatment Health Maintenance Due Date Last Done Comments Breast Cancer Screening 1985 DTaP,Tdap,and Td Vaccines (1 - Tdap) 2003 Hepatitis B Vaccines (1 of 3 - 19+ 3-dose series) 2003 Cervical Cancer Screening: P ap Smear 2005 COVID-19 Vaccine ( - 2023-2 5 season) 2024 Influenza Vaccine (#1) 2024 HIB Vaccines Aged Out No longer eligi ble based on patient's age to complete this topic HPV Vaccines Aged Out No longer eligi ble based on patient's age to complete this topic Hepatitis A Vaccines Aged Out No long er eligible based on patient's age to complete this topic IPV Vaccines Aged Out No longer eligi ble based on patient's age to complete this topic MMR Vaccines Aged Out No longer eligi ble based on patient's age to complete this topic Meningococcal ACWY Vaccine Aged Out N o longer eligible based on patient's age to complete this topic Pneumococcal Vaccine: Pediat rics (0 to 5 Years) and At-Risk Patients (6 to 64 Years) Aged Out No longer eligible b ased on patient's age to complete this topic RSV Immunization Patients Un avelino 20 months Aged Out No longer eligible b ased on patient's age to complete this topic Varicella Vaccines Aged Out No longer eligible based on patient's age to complete this topic
== END 2024-06-24 14:57 | disposition home or self-care (01) ==
LOC: HO.MAMMO 14:56
PROVIDERS: PCP Internal Medicine; Visit Provider Internal Medicine
DX: Z12.31 Encounter for screening mammogram for malignant neoplasm of breast (principal)
CPT/HCPCS: 77063; 77067